=== PATIENT | female | born 1950 | race Caucasian/White ===

== ENCOUNTER → 2019-01-22 | Outpatient (CLI) | payer MEDICARE ==
--- NOTE | 2019-01-22 14:00 | Diagnostic Imaging Report ---
INDICATION: Chronic right knee pain. TECHNIQUE: Three views of the right knee. CORRELATION STUDY: None. FINDINGS: Moderate joint space narrowing both medially and laterally. The articular surface appears smooth. Very minimal marginal osteophyte formation medially. There is kmjm-ax-trnlkpzv narrowing of the patellofemoral compartment. No appreciable spur-like formation of the patella. Soft tissues are unremarkable. IMPRESSION: 1. Ajwv-fb-gvlqlcui joint space narrowing through the right knee. No acute bony abnormality. No bony destructive change. Dictated by: Dictated on workstation # [id number]
== END ==
LOC: RAD FS 10:38
PROVIDERS: ATTEND Nurse Practitioner
DX: M17.11 Unilateral primary osteoarthritis, right knee (principal)
CPT/HCPCS: 73562

== ENCOUNTER → 2019-06-17 | Outpatient (CLI) | payer MEDICARE ==
[2019-06-17 10:10] LABS: ALANINE AMINOTRANSFERASE 12 U/L (0-55); ALKALINE PHOSPHATASE 63 U/L (40-136); BILIRUBIN,TOTAL 0.6 MG/DL (0.1-1.0); BUN/CREATININE RATIO 13; CALCIUM 9.4 MG/DL (8.5-10.1); CARBON DIOXIDE 29 MMOL/L (21-32); CHLORIDE 105 MMOL/L (98-107); CREATININE SERUM 0.78 MG/DL (0.60-1.30); GFR ESTIMATED > 60; GLUCOSE 91 MG/DL (70-105); POTASSIUM 4.2 MMOL/L (3.6-5.0); SODIUM 143 MMOL/L (135-145); TOTAL PROTEIN 7.1 GM/DL (6.4-8.2)
[2019-06-17 10:11] LABS: ALBUMIN 4.1 GM/DL (3.2-4.5)
[2019-06-17 15:09] LABS: FREE T4 (FREE THYROXINE) 1.14 NG/DL (0.70-1.48)
== END ==
LOC: LAB FS 08:10
PROVIDERS: ATTEND Pediatrics
DX: Z00.00 Encounter for general adult medical examination without abnormal findings (principal); E03.9 Hypothyroidism, unspecified
CPT/HCPCS: 36415; 80053; 80061; 84439; 84443